=== PATIENT | male | born 1950 | race Caucasian/White ===

== ENCOUNTER 2020-07-07 19:30 | Inpatient (IN) | payer OTHER ==
[~2020-07-07] VITALS: Ht 175.3 cm; Wt 114.7 kg
[2020-07-07 19:31] VITALS: BP 119/67
[2020-07-07] MEDS ORDERED: AMLODIPINE BESY10 MG PO (19:36)
[2020-07-07] MEDS ORDERED: CLOPIDOGREL75 MG PO (19:36)
[2020-07-07 20:18] LABS: CALCIUM 8.3 mg/dL (8.5-10.1); CREATININE 1.8 mg/dL (0.7-1.3); POTASSIUM 3.5 mmol/L (3.5-5.1)
[2020-07-07 20:19] LABS: ABSOLUTE NEUTROPHILS 8.3 thou/uL (1.4-8.2); BASOPHILS 0.5 % (0.0-2.0); EOSINOPHILS 0.2 % (0.0-3.0); HEMATOCRIT 33.4 % (42.0-52.0); LYMPHOCYTES 8.8 % (24.0-44.0); MCV 84.8 fL (80.0-100.0); MONOCYTES 8.1 % (1.0-8.0); PLATELET COUNT 249 thou/uL (150-400); POLYS 82.4 % (36.0-66.0); RBC 3.94 mil/uL (4.50-6.00); RDW 15.4 % (10.5-14.5); WBC 10.1 thou/uL (4.0-11.0)
[2020-07-07 20:27] LABS: ALBUMIN 1.8 g/dL (3.4-5.0); TOTAL BILIRUBIN 0.3 mg/dL (0.2-1.0); TOTAL PROTEIN 5.9 g/dL (6.4-8.2)
[2020-07-07 20:35] LABS: TROPONIN-I 38.75 ng/mL (<0.06)
[2020-07-07 22:40] LABS: URINE BILIRUBIN NEGATIVE (Negative); URINE BLOOD 2+ (Negative); URINE CLARITY SL CLOUDY; URINE COLOR YELLOW; URINE GLUCOSE-RANDOM* NEGATIVE (Negative); URINE KETONES NEGATIVE (Negative); URINE LEUKOCYTES-REFLEX NEGATIVE (Negative); URINE NITRITE-REFLEX NEGATIVE (Negative); URINE PROTEIN (DIPSTICK) 2+ (Negative); URINE SPECIFIC GRAVITY 1.025 (1.005-1.035); URINE UROBILINOGEN 0.2 E.U./dl (0.2-1.0)
[2020-07-07 22:52] LABS: CASTS None Seen /LPF (None Seen); CRYSTALS None Seen /LPF (None Seen); MUCUS 4-6 Moderate strn/LPF (None Seen); SQUAMOUS 4-10 Moderate /LPF (0-3); URINE RBC 3-10 Few /HPF (0-2); URINE WBC-REFLEX 6-15 Few /HPF (0-5)
[2020-07-07 23:50] VITALS: BP 130/74
[2020-07-08] VITALS (7 sets, daily range): BP systolic 122–153; BP diastolic 67–90
[2020-07-08 03:03] LABS: CHOLESTEROL 64 mg/dL (<200); HDL CHOLESTEROL 12 mg/dL (>40); LDL CHOLESTEROL 22 mg/dL (<100); TC:HDL 5.3 Ratio (Not establshd); TRIGLYCERIDE 154 mg/dL (<150); VLDL 31 mg/dL (<40)
[2020-07-08 03:22] LABS: SERUM ASSESSMENT Clear; TROPONIN-I 39.11 ng/mL (<0.06)
--- NOTE | 2020-07-08 04:24 | NUR ---
Pt new admit from home with weakness and elevated trops. Denies chest pain upon arrival, rital stable, with a fever of 100.7 treated with tylenol in ED. Pt alert and oriented , reports generalized pain. Denies Nausea or SOB. Pt has extensive weakness, unable to lift lower extremities, able to lift his upper extremities with a lot of difficulty. Kept Npo since about 0100, for possible cardiac cath thus morning. All admission as completed. No other concerns. Will continue to monitor
--- NOTE | 2020-07-08 07:07 | EKG ---
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 : 1950 Requested By: Pito May Order Number: [id number] MD: Brock Washington Measurements Intervals [place] Rate: 81 P: 55 MT: 138 QRS: -17 QRSD: 92 T: 52 QT: 387 QTc: 450 Interpretive Statements Sinus rhythm Paired ventricular premature complexes Inferior infarct, old Minimal ST elevation, anterior leads Baseline wander in lead(s) V1 Compared to ECG 03/22/2009 08:01:34 Ventricular premature complex(es) now present Myocardial infarct finding now present ST (T wave) deviation now present Electronically Signed On 07-08-2020 7:07:39 STOCK WORKER by Brock Washington [email or web address] <ELECTRONICALLY SIGNED> By: Brock Washington MD, FACC 07/08/20 0707 33 33 Brock Washington MD, [facility] /EPI
--- NOTE | 2020-07-08 10:31 | 2DMMODE ---
[facility] [place] [address] 2 D/M-MODE ECHOCARDIOGRAM Name: FELECIANELL Matheus Room #: 215-P ADM IN M.R.#: [id number] Admission: 07/07/20 Attend Phys: Abraham Jorgensen MD Discharge: Date of : 50 Report #: [id number] THIS REPORT FOR: cc: FAM - Family physician unknown FAM - Family physician unknown Brock Washington MD [facility] ~ APPROVED REPORT Study performed: 07/08/2020 08:49:25 EXAM: Comprehensive 2D, Doppler, and color-flow Echocardiogram Patient Location: Bedside Room #: 215 Status: routine BSA: 2.29 HR: 93 bpm BP: 134/77 mmHg Rhythm: NSR Other Information Study Quality: Good Indications Diabetes Non STEMI Dyspnea Elevated Troponin Hypertension/HDD 2D Dimensions RVDd: 40.05 mm IVSd: 12.63 (7-11mm) LVOT Diam: 20.98 (18-24mm) LVDd: 47.33 mm PWd: 15.36 (7-11mm) Ascending Ao: 39.10 (22-36mm) LVDs: 37.16 (25-40mm) Aortic Root: 31.26 mm IVC: 15.00 mm Volumes Left Atrial Volume (Systole) Single Plane 4CH: 69.40 mL Single Plane 2CH: 79.95 mL LA ESV Index: 35.00 mL/m2 Aortic Valve AoV Peak Daniel.: 2.36 m/s [facility] [place] [address] [place] [address] 2 D/M-MODE ECHOCARDIOGRAM Name: NELL IZQUIERDO Room #: 215-P [facility] IN ..#: [id number] Admission: 07/07/20 Attend Phys: Ender Chaidez Discharge: Date of : 50 Report #: [id number] Peak Gr.: 23.84 mmHg LVOT Max P.75 mmHg AO Mean Gr.: 13.33 mmHg LVOT Mean P.57 mmHg AO V2 Mean: 1.70 m/s LVOT Max V: 1.01 m/s AO V2 VTI: 42.37 cm LVOT Mean V: 0.74 m/s ROBERT (VTI): 1.58 cm2 LVOT V1 VTI: 19.37 cm ROBERT Vmax: 1.48 cm2 SV (LVOT): 66.91 mL Mitral Valve E/A Ratio: 0.7 MV Decel. Time: 278.69 ms MV E Max Daniel.: 0.78 m/s MV A Daniel.: 1.11 m/s MV PHT: 80.82 ms IVRT: 152.25 ms Pulmonary Valve PV Peak Daniel.: 0.94 m/s PV Peak Gr.: 3.53 mmHg Pulmonary Vein P Vein S: 0.45 m/s P Vein A: 0.31 m/s P Vein D: 0.24 m/s P Vein A Dur.: 106.1 msec P Vein S/D Ratio: 1.88 Left Ventricle The left ventricle is normal size. There is hypokinesis in the apical wall. Mild concentric left ventricular hypertrophy. Left ventricular systolic function is mildly decreased. LVEF is 40-45%. Grade I - abnormal relaxation pattern. Right Ventricle The right ventricle is normal size. The right ventricular systolic function is normal. Atria Left atrium is dilated. Right atrium is dilated. Aortic Valve TAVR Trace aortic regurgitation. There is no aortic valvular stenosis. Mitral Valve The mitral valve is normal in structure. There is no mitral valve regurgitation noted. No evidence of mitral valve stenosis. Tricuspid Valve [facility] [address] [place] [address] 2 D/M-MODE ECHOCARDIOGRAM Name: NELL IZQUIERDO Room #: 215-P [facility] IN ..#: [id number] Admission: 07/07/20 Attend Phys: Ender Chaidez Discharge: Date of : 50 Report #: [id number] The tricuspid valve is normal in structure. There is no tricuspid valve regurgitation noted. Pulmonic Valve The pulmonary valve is normal in structure. There is no pulmonic valvular regurgitation. Great Vessels The aortic root is normal in size. IVC is normal in size and collapses >50% with inspiration. Pericardium There is no pericardial effusion. <Conclusion> Normal left ventricular size with mild concentric hypertrophy Ejection fraction 45% with severe mid anteroapical and distal septal hypokinesis Grade 1 diastolic dysfunction Normal right ventricular size/function Moderate biatrial enlargement Color-flow Doppler study was performed of the aortic/mitral/tricuspid/pulmonary valve History of TAVR, mean gradient across the aortic valve of 13 mmHg Aortic valve was not well seen Moderate mitral annular calcification. Mitral valve, no evidence of stenosis or insufficiency No tricuspid valve insufficiency No evidence of pericardial effusion <ELECTRONICALLY SIGNED> By: Brock Washington MD, FACC 07/08/20 1031 1031 103 Brock Washington MD, FACC /INF
--- NOTE | 2020-07-08 15:57 | NUR ---
Case opened to follow for dc planning needs. Pt admitted with nstemi and weakness. Cardiac cath on hold til Saturday for continued diuresis. Renal also consulted. Pt lives at home with his and has recently travel to [place]. He uses a cane, rwalker and elec scooter for distances. He is noted to have increased weakness for the past week, had a fall at home, and had an ER visit at [facility] but refused to be admitted. He did have a covid neg test there. Therapy evals are on hold at this time due to pending heart cath. No weekend dc anticipated. Will f/u Saturday to assess for dc planning needs.
--- NOTE | 2020-07-08 18:21 | NUR ---
PT BECOMING TACHYCRDIC AND SPIKING A TEMP. CONTACT DR. MIRELES AND RECIEVE ORDERS. WILL START EXTRA IV AND CONTACT CARDIOLOGY WELL. WILL CONTINUE TO ASSESS.
[2020-07-08 18:52] LABS: HEMATOCRIT 32.7 % (42.0-52.0); HEMOGLOBIN 10.7 gm/dL (14.0-18.0); MCH 27.6 pg (26.0-34.0); MCHC 32.8 g/dL (28.0-37.0); RBC 3.89 mil/uL (4.50-6.00); WBC 12.1 thou/uL (4.0-11.0)
--- NOTE | 2020-07-08 19:00 | NUR ---
DIRECTOR COMMUNITY ORGANIZATION ACTIVATED FOR CONCERN R/T SEPSIS. SEE RAPID RESPONSE INTERVENTION FOR FURTHER DETAILS. ORDERS GIVEN. PT TO REMAIN ON CCU.
[2020-07-08 19:12] LABS: ALBUMIN 1.8 g/dL (3.4-5.0); CALCIUM 8.2 mg/dL (8.5-10.1); CREATININE 2.4 mg/dL (0.7-1.3); MAGNESIUM 1.6 mg/dL (1.8-2.4); POTASSIUM 3.6 mmol/L (3.5-5.1); TOTAL BILIRUBIN 0.4 mg/dL (0.2-1.0)
[2020-07-08 19:16] LABS: TROPONIN-I 25.32 ng/mL (<0.06)
[2020-07-09 00:45] VITALS: BP 140/84
[2020-07-09 01:06] LABS: GLYCOHEMOGLOBIN (HGB A1C) 8.6 % (4.8-5.6)
--- NOTE | 2020-07-09 03:49 | NUR ---
Assumed pt care at 1900. Report obtained from day RN. Upon report, patient was noted to be septic. Physician notified by day nurse. Assessment completed. Vital signs stable. Blood pressure noted to be stable. Scheduled meds administered to pt. No acute events noted in pt through the night. Continue to monitor. No further needs at this time.
[2020-07-09 04:45] VITALS: BP 147/92
[2020-07-09 06:08] LABS: ALBUMIN 1.6 g/dL (3.4-5.0); CALCIUM 8.1 mg/dL (8.5-10.1); CREATININE 2.9 mg/dL (0.7-1.3); PHOSPHORUS 5.3 mg/dL (2.5-4.9); POTASSIUM 3.6 mmol/L (3.5-5.1)
[2020-07-09 08:00] VITALS: BP 140/71
--- NOTE | 2020-07-09 10:55 | EKG ---
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
--- NOTE | 2020-07-09 10:56 | EKG ---
[address] [address] ELECTROCARDIOGRAM REPORT Name: NELL IZQUIERDO Room #: 215-P ADM IN M.R.#: [id number] Admission: 07/07/20 Attend Phys: Abraham Jorgensen MD Discharge: Date of : 50 Report #: [id number] [facility] Test Date: 2020-07-09 Test Time: 09:55:46 Pat Name: NELL IZQUIERDO Department: Room: 215 P Gender: M Health Information Specialist: : 1950 Requested By: Antoine Kamara Order Number: [id number] MD: Antoine Kamara Measurements Intervals [place] Rate: 89 P: 42 GA: 140 QRS: -14 QRSD: 94 T: 28 QT: 362 QTc: 441 Interpretive Statements Sinus rhythm Borderline ST elevation, anterolateral leads, improved Compared to ECG 07/08/2020 16:15:01 Electronically Signed On 07-09-2020 10:56:35 BRICK LAYER by Antoine Kamara [email or web address] <ELECTRONICALLY SIGNED> By: Antoine Kamara MD 07/09/20 1056 0955 09 Antoine Kamara MD /OSMAN
[2020-07-09 11:49] LABS: APTT 34.5 Seconds (24.5-32.8); INR 1.1; PROTIME 12.6 Seconds (9.3-11.4)
[2020-07-09 12:15] VITALS: BP 142/76
[2020-07-09 15:20] VITALS: BP 114/80; BP 1421/80
--- NOTE | 2020-07-09 17:14 | NUR ---
PT ALERT AND ORIENTED. VSS. REPORT HAVING RIGHT FOOT PAIN. DR. TERAN AWARE. NEW ORDERS NOTED. AT THE BEDSIDE. HEPARIN DRIP INFUSING PER PROTOCAL. NO CONCERNS AT THIS TIME.
[2020-07-09 19:39] VITALS: BP 135/78
[2020-07-09 23:12] LABS: URINE BILIRUBIN NEGATIVE (Negative); URINE BLOOD 2+ (Negative); URINE CLARITY SL CLOUDY; URINE COLOR YELLOW; URINE GLUCOSE-RANDOM* 1+ (Negative); URINE KETONES NEGATIVE (Negative); URINE LEUKOCYTES NEGATIVE (Negative); URINE NITRITE NEGATIVE (Negative); URINE PROTEIN (DIPSTICK) 3+ (Negative); URINE SPECIFIC GRAVITY 1.025 (1.005-1.035); URINE UROBILINOGEN 0.2 E.U./dl (0.2-1.0)
[2020-07-09 23:22] LABS: SQUAMOUS 0-3 Few /LPF (0-3)
[2020-07-09 23:23] LABS: AMORPHOUS URATES Few /LPF (None Seen); BACTERIA 1-9 Few /HPF (None Seen); CASTS None Seen /LPF (None Seen); MUCUS 0-3 Light strn/LPF (None Seen); URINE RBC 3-10 Few /HPF (0-2); URINE WBC 0-5 Rare /HPF (0-5)
[2020-07-10 05:05] VITALS: BP 138/87
[2020-07-10 05:13] LABS: ALBUMIN 1.4 g/dL (3.4-5.0); CALCIUM 7.9 mg/dL (8.5-10.1); CREATININE 3.6 mg/dL (0.7-1.3); PHOSPHORUS 6.3 mg/dL (2.6-4.7); POTASSIUM 3.8 mmol/L (3.5-5.1)
[2020-07-10 08:57] VITALS: BP 137/80
[2020-07-10 12:40] VITALS: BP 121/63
[2020-07-10 16:09] VITALS: BP 139/73
--- NOTE | 2020-07-10 16:59 | NUR ---
ASSUMED CARE AT CHANGE OF [facility]. ALERTX4, DENIES CHEST PAIN. SOB THIS MORNING PROVIDE 1L NASAL CANNULA FOR COMFORT AND ELEVATED HOB.NO LONGER REQUIRING O2 AT THIS TIME. PAIN IN BACK AND HIPS MANAGED WIT PRN PAIN MEDS. ON HEPARIN PROTOCAL PER ORDERS. AUDREY PLANNED FOR THE MORNING. VOIDS PER JACOBO CATH. TREATED BLOOD SUGARS PER ORDERED. BEDREST WITH Q2HR TURNS TOLERATED. BEDSIDE AND UPDATED ON PT'S STATUS. CALLS FOR ASSISTANCE. PERSONAL ITEMS IN REACH.
[2020-07-10 19:32] VITALS: BP 131/74
[2020-07-11 04:09] VITALS: BP 141/78
[2020-07-11 04:36] LABS: ALBUMIN 1.3 g/dL (3.4-5.0); CREATININE 4.1 mg/dL (0.7-1.3); PHOSPHORUS 6.4 mg/dL (2.5-4.9); POTASSIUM 3.7 mmol/L (3.5-5.1)
--- NOTE | 2020-07-11 04:57 | NUR ---
ASSUMED PT CARE AT 1900. VSS, PT A&0X4. FREQUENT TURNS NEEDED THROUGH THE NOC, OTHERWISE PT IS STABLE, NO COMPLAINTS. PT ON HEPARIN GTT. RESTED WELL ALL NOC, NPO AT 0000 FOR AUDREY TODAY; WILL CONTINUE TO MONITOR PER POC.
--- NOTE | 2020-07-11 09:17 | TEE ---
[facility] [place] [address] TRANSESOPHAGEAL ECHOCARDIOGRAM Name: NELL IZQUIERDO Room #: 215-P [facility] IN M.R.#: [id number] Admission: 07/07/20 Attend Phys: Abraham Jorgensen MD Discharge: Date of : 50 Report #: [id number] THIS REPORT FOR: cc: FAM - Family physician unknown FAM - Family physician unknown Brock Washington MD [facility] ~ APPROVED REPORT Study performed: 07/11/2020 08:16:38 EXAM: Comprehensive 2D, Doppler, and color-flow Echocardiogram Patient Location: In-Patient Room #: 9 Status: routine BSA: 2.29 HR: 79 bpm BP: 145/86 mmHg Rhythm: NSR Other Information Study Quality: Good Indications TAVR Echo Enhancing Agent Indication: Rule out Shunt Agent(s) / Amount(s) Used: Agitated Saline 7 cc Procedure After obtaining informed consent, patient underwent transesophageal echo in the [employer]. Type of Sedation : Conscious Sedation Sedation was administered by Anesthesiologist. Sedation was achieved intravenously with: Propofol (130 mcg) Transesophageal probe was inserted and advanced into esophagus without difficulty by Brock Washington MD. Echo enhancement indication: R/O Septal defect. Echo enhancement agent administered: Agitated Saline The AUDREY was performed without complications. Throughout the procedure, the blood pressure, pulse oximetry, cardiac rhythm, and rate were monitored. [address] [place] [address] TRANSESOPHAGEAL ECHOCARDIOGRAM Name: NELL IZQUIERDO Room #: 215-P [facility] IN M.R.#: [id number] Admission: 07/07/20 Attend Phys: Ender Chaidez Discharge: Date of : 50 Report #: [id number] The patient tolerated the procedure without adverse effects. Recovery from conscious sedation was uneventful and vital signs were stable. Left Ventricle The left ventricle is normal size. There is hypokinesis in the apical wall. There is normal left ventricular wall thickness. Left ventricular systolic function is mildly decreased. LVEF is 45%. Right Ventricle The right ventricle is normal size. The right ventricular systolic function is normal. Atria Left atrium is dilated. Interatrial septum is intact without evidence of ASD or PFO. Right atrium is dilated. Aortic Valve TAVR No aortic regurgitation is present. There is no aortic valvular stenosis. Mitral Valve The mitral valve is normal in structure. Mild mitral regurgitation. No evidence of mitral valve stenosis. Tricuspid Valve The tricuspid valve is normal in structure. There is no tricuspid valve regurgitation noted. Great Vessels The aortic root is normal in size. Pericardium There is no pericardial effusion. <Conclusion> Anesthesiologist present Timeout was performed Esophageal probe was advanced without difficulty. Left ventricle; normal size/wall thickness EF 45%, mild distal anteroapical hypokinesis, no obvious clot detected Normal right ventricular size/function Mild biatrial enlargement [address] [place] [address] TRANSESOPHAGEAL ECHOCARDIOGRAM Name: NELL IZQUIERDO Room #: 215-P ADM IN M.R.#: [id number] Admission: 07/07/20 Attend Phys: Ender Chaidez Discharge: Date of : 50 Report #: [id number] Color-flow Doppler study was performed of the aortic/mitral/tricuspid valve. Pulmonary valve was not visualized Previous history of TAVR. Adequate cusp excursion. No obvious vegetation detected Normal mitral valve structure. No obvious vegetation detected Mild/central mitral valve insufficiency No evidence of tricuspid valve insufficiency Abnormal tricuspid valve structure and function. No obvious vegetation detected No pericardial effusion No evidence of atrial/ventricular septal defect by color flow/bubble study No obvious vegetation or abscess detected Patient tolerated the procedure well <ELECTRONICALLY SIGNED> By: Brock Washington MD, FACC 07/11/20916 6 6 Brock Washington MD, FACC /INF
[2020-07-11 09:25] VITALS: BP 128/74
[2020-07-11 10:46] VITALS: BP 128/73
--- NOTE | 2020-07-11 11:45 | HC ---
[facility] [place] [address] CONSULTATION Name: NELL IZQUIERDO Room #: 215-P [facility] IN ..#: [id number] Admission: 07/07/20 Attend Phys: Abraham Jorgensen MD Discharge: Date of : 50 Report #: [id number] THIS REPORT FOR: cc: LIZZ - Family physician unknown LIZZ - Family physician unknown Jenaro Bolanos MD ~ DATE OF SERVICE: 07/08/2020 WOUND CARE CONSULTATION PERSONAL PHYSICIAN: None on staff. CHIEF COMPLAINT: Right plantar foot wound. HISTORY OF PRESENT ILLNESS: This is a 69-year-old white male with a history of diabetes, who was admitted through the Emergency Department for dyspnea. Upon his admission, he was noted to have a chronic wound/callus the plantar aspect of his right foot, which he has been followed by Dr. Myles of Podiatry as an outpatient. The patient states he does have a special shoe that he wears given his Charcot arthropathy on the right foot. The patient denies any pain associated with this. The patient denies any other associated wounds at this time. We have been asked to follow the wound while he is here in the hospital. PAST MEDICAL HISTORY: Significant for type 2 diabetes, congestive heart failure, hypertension, previous TAVR of the tricuspid valve, previous left toe amputation. CURRENT MEDICATIONS: Multiple, I reviewed the patient's medication list. DRUG ALLERGIES: None. SOCIAL HISTORY: The patient drinks alcohol socially. Denies tobacco use. Lives at home independently. FAMILY HISTORY: Not pertinent to current medical condition. REVIEW OF SYSTEMS: CONSTITUTIONAL: The patient denies fevers or chills. NEUROLOGIC: The patient complains of mild overall generalized weakness, but no isolated weakness in arms or legs. EYES: No complaints. ENT: No complaints. CARDIAC: The patient was admitted for dyspnea, but denies chest pain. RESPIRATORY: The patient once again had dyspnea on exertion associated with mild cough. [facility] [address] [place] [address] CONSULTATION Name: NELL IZQUIERDO Room #: 215-P [facility] IN [facility]#: [id number] Admission: 07/07/20 Attend Phys: Abraham Jorgensen MD Discharge: Date of : 50 Report #: [id number] GASTROINTESTINAL: The patient denies nausea, vomiting or abdominal pain. GENITOURINARY: The patient denies urgency or frequency. MUSCULOSKELETAL: No complaints. SKIN: There is a chronic ulcer/callus on the plantar aspect of his right foot consistent with a Charcot arthropathy. PHYSICAL EXAMINATION: VITAL SIGNS: Temperature 36.8, pulse 89, respirations 22, BP 134/77. GENERAL: This is an alert and oriented x 3, pleasant white male who is in no acute distress. HEENT: Normocephalic, atraumatic. Mucous membranes are dry. Pupils are round. Sclerae white. NECK: Without JVD. LUNGS: Slight diminished breath sounds heard throughout. HEART: Regular. ABDOMEN: Obese, soft, nontender. EXTREMITIES: The patient moves all extremities without difficulty. Evaluation of the right lower extremity reveals 1+ dorsalis pedis and posterior tibial pulse. The plantar aspect of the right foot has callus over the mid foot with Charcot arthropathy changes. There is no tenderness. No erythema or warmth. No other associated abnormalities noted. Left lower extremity has previous well-healed toe amputations with 1+ dorsalis pedis pulse. Bilateral heels are intact. NEUROLOGIC: Cranial nerves 2-12 grossly intact. Motor and sensory grossly intact. LABORATORY DATA: White count 10.1, hemoglobin 11.0. BUN 40, creatinine 1.8, albumin 1.8. IMPRESSION: 1. Chronic ulcer/callus right plantar foot with associated Charcot arthropathy. 2. Diabetes mellitus type 2. 3. Coronary artery disease with most likely recent non-ST elevation myocardial infarction. 4. Acute exacerbation of congestive heart failure. 5. Hypertension. 6. Protein-calorie malnutrition -- severe, albumin 1.8. PLAN: At this time, we will place foam over the plantar foot, have this changed Saturday, Saturday and Saturday. We will make sure we maximize the patient's oral [address] [address] CONSULTATION Name: NELL IZQUIERDO Room #: 215-P [facility] IN .R.#: [id number] Admission: 07/07/20 Attend Phys: Abraham Jorgensen MD Discharge: Date of : 50 Report #: [id number] protein supplementation for healing. We will continue to follow the patient while he is here. At this time, we will continue all other current medications. <ELECTRONICALLY SIGNED> By: Jenaro Bolanos MD 07/11/20 1145 1050 1154 Jenaro Bolanos MD /nt
[2020-07-11 16:00] VITALS: BP 136/75
--- NOTE | 2020-07-11 16:41 | HC ---
[facility] [place] [address] CONSULTATION Name: NELL IZQUIERDO Room #: 215-P [facility] IN ..#: [id number] Admission: 07/07/20 Attend Phys: Abraham Jorgensen MD Discharge: Date of : 50 Report #: [id number] THIS REPORT FOR: cc: FAM - Family physician unknown FAM - Family physician unknown Indra Lee MD ~ DATE OF SERVICE: 07/09/2020 INFECTIOUS DISEASE CONSULTATION REASON FOR CONSULTATION: I was asked to evaluate concerning enterococcal bacteremia. HISTORY OF PRESENT ILLNESS: The 69-year-old, underlying coronary artery disease, aortic stenosis, status post TAVR in November of this past year. He has also had episodes of congestive heart failure. He has diabetes and peripheral neuropathy and has been dealing with Charcot foot wound to the plantar aspect of his right foot. He presents now with generalized weakness that has progressed over the last several weeks. He noted while in [place] at altitude several weeks ago, he developed shortness of breath and fatigue. He thought it was all of the altitude, but once he returned home, continued to have fatigue and shortness of breath with some increased peripheral edema. He was seen by his wound care doctors, placed on doxycycline 8 days ago. Despite this, he continued to feel poorly. No fever, chills or sweats have been identified. He was seen in first of this week in [facility] and diagnosed with congestive heart failure. He did not stay, although they requested for him to be admitted. When he returned home, he fell, hit his head due to lightheadedness. He has had loose stools. No dysuria or frequency. He has had his upper teeth extracted prior to his TAVR. Lower teeth were in good repair. Following admission, he was found to have a temperature of 38.2 degrees. His troponin was elevated. He has been seen by cardiovascular medicine and recommends angiogram in first of next week. Blood cultures were drawn and both cultures are positive for Enterococcus faecalis from 07/07/2020. REVIEW OF SYSTEMS: A 14-point review of system was negative other than what has been described above. He now has an indwelling Lindquist catheter. He was having urinary incontinence. Now he has acute kidney injury as well. Nephrology is evaluating. ALLERGIES: None known. MEDICATIONS: As noted on his MAR, having been given vancomycin and ceftriaxone that was switched today to cefepime. PAST MEDICAL HISTORY: Diabetes, coronary artery disease, congestive heart [address] [address] CONSULTATION Name: FELECIANELL Matheus Room #: 215-P [facility] IN [facility].#: [id number] Admission: 07/07/20 Attend Phys: Abraham Jorgensen MD Discharge: Date of : 50 Report #: [id number] failure, aortic valve disease, status post TAVR, hypertension, chronic kidney disease, peripheral vascular disease, diabetic neuropathy, Charcot foot on the right, chronic wound on the plantar aspect of his mid foot. Left first toe amputation and partial left second toe amputation, herniorrhaphy. FAMILY HISTORY: No report of tuberculosis. SOCIAL HISTORY: Nonsmoker. 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 Lives with his . PHYSICAL EXAMINATION: VITAL SIGNS: Afebrile and hemodynamically stable. GENERAL: He is alert and cooperative. He had bruising to his left periorbital skin. There was a callused healed wound over the plantar aspect of his right foot with Charcot changes. There was fluctuance in the region. There was minimal erythema. No palpable adenopathy. He was obese. HEENT: Eyes, otherwise without scleral icterus or conjunctivitis. Mouth upper teeth extracted. Lower teeth in good repair. NECK: Supple. LUNGS: Clear. HEART: Regular, did not appreciate any murmur. ABDOMEN: Soft and nontender. No hepatosplenomegaly or mass appreciated. GENITOURINARY: External genitalia without lesion, had indwelling Lindquist catheter. RECTAL: Not performed. EXTREMITIES: Without clubbing or cyanosis. He had 1+ edema both lower extremities and peripheral neuropathy in both feet with decreased sensation to touch. Strength in his upper and lower extremities was within normal limits and symmetric. NEUROLOGIC: Cranial nerves intact. Mood without anxiety or depression. BACK: Nontender to percussion. LABORATORY STUDIES: Reviewed. Microbiology reviewed. CT scan of the chest reviewed. CT scan of the head reviewed. IMPRESSION: 1. High-grade enterococcal bacteremia in the setting of recent TAVR 7 months ago, is concerning for possible endocarditis. Other consideration would be right foot chronic wound, but this would be unusual to have a high-grade bacteremia. At this point he has had loose stools, could have evidence of colitis or diverticulitis but typically would not be high-grade bacteremia. 2. Acute kidney injury. 3. Congestive heart failure. 4. Right Charcot foot with chronic wound. 5. Non-ST elevation myocardial infarction. [facility] [address] [place] [address] CONSULTATION Name: NELL IZQUIERDO Room #: 342-P [facility] IN M.R.#: [id number] Admission: 07/07/20 Attend Phys: Abraham Jorgensen MD Discharge: Date of : 50 Report #: [id number] 6. Diabetes. 7. Peripheral neuropathy. 8. Hypertension. 9. Has mild pyuria and bacteriuria, indeterminate if this is related to his bacteremia. RECOMMENDATIONS: 1. We will repeat his blood cultures. Continue with empiric antibiotic for enterococcal infection. 2. AUDREY and compare to his previous echocardiograms one of which was done 2 weeks ago. 3. Follow kidney function and adjust his antibiotics accordingly. 4. Await urine culture results. 5. Image abdomen and pelvis along with his right foot. 6. Further recommendations pending initial studies. <ELECTRONICALLY SIGNED> By: Indra Lee MD 07/11/20 1641 [id number] Indra Lee MD /nt
--- NOTE | 2020-07-11 19:37 | NUR ---
ASSUMED CARE AT CHANGE OF SHIFT. AUDREY C NOTE. DENIES SOB, PAIN MANAGED WITH PRN MEDICATIONS. ENCOURAGED FLUIDS AND MEALS. CONTINUES ON HEPARIN 18.56 UNIT/KG. MAX/MOD ASSISTX2. UP TO CHAIR FOR 3 HOURS. Q2HR TURNS TOLERATED. MEDICATIONS GIVEN PER ORDERED. CALLS FOR ASSISTANCE
[2020-07-11 20:45] VITALS: BP 128/70; BP 135/75
[2020-07-12 03:12] VITALS: BP 135/77
--- NOTE | 2020-07-12 05:10 | NUR ---
ASSESSMENTS CHARTED, MEDS CHARTED GIVEN. NSTEMI AND ACUTE KIDNEY INJURY. ON HEPARIN DRIP UNTIL KIDNEYS ARE WORKING BETTER AND PATIENT CAN HAVE CATH PERFORMED WITH DYE. JACOBO IN PLACE. ACCU-CHECK ON SSI. UP WITH ASSIST OF 2, PIVOT TO CHAIR. PATIENT UNCOMFORTABLE IN BED. CONTINUES TO READJUST HIMSELF IN BED. TRAMADOL HELPED WITH COMFORT. BOOTS WERE ORDERED. FALL PRECAUTIONS IN PLACE DURING SHIFT.
[2020-07-12 05:19] LABS: ALBUMIN 1.5 g/dL (3.4-5.0); CALCIUM 7.9 mg/dL (8.5-10.1); CREATININE 3.7 mg/dL (0.7-1.3); PHOSPHORUS 6.2 mg/dL (2.5-4.9); POTASSIUM 3.7 mmol/L (3.5-5.1)
[2020-07-12 08:00] VITALS: BP 142/78; BP 142/81
[2020-07-12 12:00] VITALS: BP 145/63
[2020-07-12 15:50] VITALS: BP 130/67
[2020-07-12 21:13] VITALS: BP 134/75
--- NOTE | 2020-07-13 03:19 | NUR ---
ASSESSMENTS CHARTED, MEDS CHARTED GIVEN. PATIENT SITTING IN RECLINER AT START OF SHIFT, PIVOT TO BED WITH ASSIST OF 2. PATIENT C/O RIGHT SHOULDER PAIN STATED HE HAD HAD SHINGLES A WHILE BACK IN THAT AREA. RATES PAIN 6/10. PATIENT ABLE TO SLEEP DURING NIGHT. FALL PRECAUTIONS IN PLACE DURING SHIFT. PLAN OF CARE IS TO HAVE A HEART CATH DONE WHEN HIS KIDNEY FUNCTION IMPROVES.
[2020-07-13 04:53] VITALS: BP 130/68
[2020-07-13 06:57] LABS: ALBUMIN 1.6 g/dL (3.4-5.0); CALCIUM 8.1 mg/dL (8.5-10.1); PHOSPHORUS 4.7 mg/dL (2.5-4.9); POTASSIUM 3.4 mmol/L (3.5-5.1)
[2020-07-13 07:01] LABS: CREATININE 2.6 mg/dL (0.7-1.3)
[2020-07-13 08:10] VITALS: BP 155/86
[2020-07-13 11:29] VITALS: BP 136/107
--- NOTE | 2020-07-13 14:04 | NUR ---
PT RESTING COMFORTABLY IN BED/CHAIR TODAY. WORKED WITH PT/OT TODAY. PT WAITING FOR HEART CATH UPON RENAL APPROVAL. PT AND HAVE BEEN UPDATED AND EDUCATED ON PT CONDITION AND POC. PT SLOWLY PROGRESSING TOWARDS POC.
--- NOTE | 2020-07-13 15:16 | NUR ---
Library Historian visited with the pt and his spouse at bedside this afternoon to discuss possible dc planning needs. The pt reports his kidneys are working better and he is hoping to have a cardiac cath soon. His goal is to return directly home at dc. He is open to HH f/u and has not had it before. notes they have had [facility] into the home for their elderly roommate. She is a HEARING AND SPEECH ASSISTANT and is his caregiver. She is agreeable to Hh as well and denies a preference other than [facility]. They are agreeable to sending a referral to two SNF's as a plan B if needed: [facility]. The pt is aware that he is much weaker than normal. He was walking short distances with a cane and able to transfer to his scooter independently. He is c/o shoulder pain today. Nursing and therapy aware. to check with his pcp Dr. Evi De Leon at the [facility] to see if they can [facility]. The pt has stair lifts in place in their split level home and their bathrooms are modified. Support provided. Dc timeframe is uncertain. DC solution advisor to send referrals to [facility] and [facility].
--- NOTE | 2020-07-13 15:27 | NUR ---
FAXED REFERRAL TO [facility] RECEIVED CONFIRMATION LEFT MSG WITH INTAKE. FAXED REFERRAL TO [facility] SPOKE WITH PEPE IN ADM SHE RECEIVED REFERRAL AND CAN ACCEPT CLINICALLY. FAXED REFERRAL TO [facility] SPOKE WITH RAMONA IN ADM SHE RECEIVED REFERRAL AND WILL REVIEW. DP TO FOLLOW.
[2020-07-13 15:29] VITALS: BP 131/73
[2020-07-13 20:04] VITALS: BP 163/91
--- NOTE | 2020-07-14 02:24 | NUR ---
WHILE PROVIDING CARE IN ANOTHER ROOM AT APPROXIMATELY 0110 NURSE WAS ALERTED BY YELLING ITEM PROCESSOR THAT PATIENT WAS "IN TROUBLE". NURSE THEN HEARD CODE ALARM CALLED AND RAN TO ROOM WITH CRASH CART. PATIENT WAS RECEIVING CPR FROM STAFF. MULTIPLE ATTEMPTS AT DEFIBRILLATION , AND ROUNDS OF CPR WITH EPINEPHRINE PROVIDED WITH NO AFFECT. PATIENT AT 0140. MULTIPLE ATTEMPTS HAVE BEEN MADE TO CONTACT PATIENTS UNSUCCESSFULLY. [facility] CALLED WITH FULL UPDATE PROVIDED. NURSE TO CONTINUE TO ATTEMPT CONTACTING FAMILY. POST MORTEM CARE [place] WITH [place] [facility]
--- NOTE | 2020-07-14 04:57 | NUR ---
SUCCESSFULLY CONTACTED AT 0339 WITH NURSE INFORMING HER OF THE PASSING OF HER LOVED ONE. APPROVAL GRANTED FOR HER AND PERSON DRIVING HER TO COME INTO HOSPITAL AND SEE PATIENT PRIOR TO BODY BEING TRANSFERRED TO [facility]
== END 2020-07-14 01:40 | DRG 871 ==
LOC: ER 19:30 → EROBS 23:41 → 2N 23:41
PROVIDERS: Hospitalist; Internal Medicine Cardiovascular Disease; Internal Medicine Nephrology; Nurse Practitioner Family; Physician Assistant; Specialist; ADMIT Hospitalist; ATTEND Hospitalist
PROC: 5A0935A Assistance with Respiratory Ventilation, Less than 24 Consecutive Hours, High Flow/Velocity Cannula (ICD-10-PCS; principal; 2020-07-11)
PROC: B24BZZ4 Ultrasonography of Heart with Aorta, Transesophageal (ICD-10-PCS; principal; 2020-07-11)
PROC: 5A12012 Performance of Cardiac Output, Single, Manual (ICD-10-PCS; 2020-07-14)
PROC: 5A2204Z Restoration of Cardiac Rhythm, Single (ICD-10-PCS; 2020-07-14)
DX: A41.81 Sepsis due to Enterococcus (principal); I21.4 Non-ST elevation (NSTEMI) myocardial infarction; E43 Unspecified severe protein-calorie malnutrition; I50.43 Acute on chronic combined systolic (congestive) and diastolic (congestive) heart failure; N39.0 Urinary tract infection, site not specified; N17.9 Acute kidney failure, unspecified; L97.319 Non-pressure chronic ulcer of right ankle with unspecified severity; I13.0 Hypertensive heart and chronic kidney disease with heart failure and stage 1 through stage 4 chronic kidney disease, or unspecified chronic kidney disease; E87.1 Hypo-osmolality and hyponatremia; I42.9 Cardiomyopathy, unspecified; I38 Endocarditis, valve unspecified; S81.801A Unspecified open wound, right lower leg, initial encounter; Z20.822 Contact with and (suspected) exposure to COVID-19; M14.671 Charcot's joint, right ankle and foot; I25.10 Atherosclerotic heart disease of native coronary artery without angina pectoris; E11.51 Type 2 diabetes mellitus with diabetic peripheral angiopathy without gangrene; E11.42 Type 2 diabetes mellitus with diabetic polyneuropathy; I35.0 Nonrheumatic aortic (valve) stenosis; E11.22 Type 2 diabetes mellitus with diabetic chronic kidney disease; N18.31 Chronic kidney disease, stage 3a; M40.209 Unspecified kyphosis, site unspecified; E66.9 Obesity, unspecified; I46.9 Cardiac arrest, cause unspecified; S91.301A Unspecified open wound, right foot, initial encounter; Z89.422 Acquired absence of other left toe(s); Z68.37 Body mass index [BMI] 37.0-37.9, adult; Y93.89 Activity, other specified; W18.39XA Other fall on same level, initial encounter; Y92.89 Other specified places as the place of occurrence of the external cause; Y99.8 Other external cause status
CPT/HCPCS: 10081; 62110; 62900